=== PATIENT | female | born 1970 | race Caucasian/White ===

== ENCOUNTER 2016-07-29 10:32 | Day surgery (SDC) | payer OTHER ==
[~2016-07-29] VITALS: Ht 167.6 cm; Wt 86.0 kg
[~2016-07-29 10:32] MED LIST: 0.9% Sodium Chloride 1,000 ML IV SCH; LEVO75TA4 PO; MULT-1018 PO; Sodium Chloride LOK Flush 10 mL Syringe IV PRN; fentaNYL-PF 50 mCg/mL 2 mL Inj IVPUSH PRN
[2016-07-29 10:44] VITALS: BP 133/78; PULSE 83; RESP 16; O2SAT 97
[2016-07-29] MEDS ORDERED: SERT50TA PO (10:47)
[2016-07-29 11:25] VITALS: BP 125/71; PULSE 68; RESP 16; O2SAT 99
[2016-07-29 11:35] VITALS: BP 121/69; PULSE 69; RESP 14; O2SAT 96
[2016-07-29 11:45] VITALS: BP 127/74; PULSE 72; RESP 14; O2SAT 97
[2016-07-29 11:54] VITALS: BP 133/80; PULSE 63; RESP 14; O2SAT 98
--- NOTE | 2016-07-29 14:58 | ENDO ---
[address] [address] ENDOSCOPY PROCEDURE PATIENT: BERRY GIL : 1970 MR#: [id number] ADMIT: 07/29/2016 JOB ID: [id number] DATE: 07/29/2016 TYPE OF OPERATION: Colonoscopy. PREOPERATIVE DIAGNOSIS(ES): Family history of colon cancer. POSTOPERATIVE DIAGNOSIS(ES): Small internal hemorrhoids. ANESTHESIA: 1. Fentanyl 100 mcg. 2. Versed 5 mg IV administered. COMPLICATIONS: None. BLOOD LOSS: Minimal. DESCRIPTION OF PROCEDURE: After the risks and benefits were explained to the patient, informed consent was obtained. After anesthesia administered, colonoscope was inserted from the rectum to the cecum. Mucosa carefully examined. Prep of the patient was excellent. After the procedure was done, the scope was withdrawn and the procedure terminated. FINDINGS: Upon inspection of the anus, no masses, hemorrhoids, ulcers, fissures that were seen. Throughout the entire examination, there were no polyps, masses, lesions. Retroflexion showed small internal hemorrhoids. IMPRESSION: Small internal hemorrhoids. RECOMMENDATIONS: 1. Stool softer as needed. 2. Repeat colonoscopy five years given family history of colon cancer.
== END 2016-07-29 23:59 | disposition home or self-care (01) ==
LOC: END 10:32
PROVIDERS: ATTEND Internal Medicine Gastroenterology
DX: K64.8 Other hemorrhoids (principal); Z80.0 Family history of malignant neoplasm of digestive organs; Z79.899 Other long term (current) drug therapy; Z87.891 Personal history of nicotine dependence
CPT/HCPCS: 45378; G0500; J7030